=== PATIENT | female | born 1970 | race Two or more races ===

== ENCOUNTER 2017-09-24 11:41 | Day surgery (SDC) | payer BC ==
[2017-09-24] MEDS ORDERED: INSULIN REG, HUMAN 100 UNIT/ML 3 ML VIAL (PYX) ONE (12:25)
[2017-09-24] MEDS ORDERED: NALOXONE HCL INJ/PF 0.4 MG/1 ML SDV ONE (12:28)
[2017-09-24] MEDS ORDERED: DIPHENHYDRAMINE HCL 50 MG/ML VIAL ONE (12:28)
[2017-09-24] MEDS ORDERED: ONDANSETRON HCL INJ/PF 4 MG/2 ML SDV ONE (12:28)
[2017-09-24] MEDS ORDERED: FLUMAZENIL INJ 0.5 MG/5 ML VIAL ONE (12:29)
[2017-09-24] MEDS ORDERED: MIDAZOLAM 2 MG/2 ML INJ ONE (12:29)
[2017-09-24] MEDS ORDERED: EPINEPHRINE INJ 1 MG/10 ML DISP.SYRIN ONE (12:29)
[2017-09-24] MEDS ORDERED: FENTANYL CITRATE INJ/PF 100 MCG/2 ML AMPUL ONE (12:29)
[2017-09-24] MEDS ORDERED: GLUCAGON,HUMAN RECOMB 1 MG INJ ONE (12:30)
[2017-09-24] MEDS: MIDAZOLAM 2 MG/2 ML INJ ONE ×2 (13:12→13:18)
[2017-09-24 14:29] VITALS: BP 114/75
--- NOTE | 2017-09-24 14:40 | Operative Report ---
Operative Report DATE OF SURGERY: 09/24/17 Operative Report: The risks benefits and alternatives of the procedure explained to the patient in detail and informed consent is obtained.A GIF Olympus video scope was inserted into the patient's mouth and hypopharynx ,the esophagus is identified intubated and insufflated, the scope was then advanced through the esophagus stomach and duodenum, retroflexion maneuver is done, the esophagus stomach and first and second portions of the duodenum examined PREOPERATIVE DIAGNOSIS: Hematemesis, halitosis, GERD POSTOPERATIVE DIAGNOSIS: Distal esophageal ulcer. Gastritis status post biopsy rule out Helicobacter pylori OPERATION: EGD with biopsy SURGEON: ZEB CABRERA ANESTHESIA: Moderate Sedation - 4 mg of Versed, 100 mcg of fentanyl. Conscious sedation monitoring time 30 minutes. TISSUE REMOVED OR ALTERED: As noted above. COMPLICATIONS: None. ESTIMATED BLOOD LOSS: None. INTRAOPERATIVE FINDINGS: As noted above. PROCEDURE: Patient tolerated procedure well. No immediate postprocedure complications are noted. Patient discharged in good condition. Discharge date 09/24/2017. Discharge diet: Regular. Discharge activity: Regular. 2-3 week follow-up to discuss findings. Patient is instructed call the office or proceed to the emergency room should there be any further problems or questions. We will await pathology. I spoke to Dr. Matias about further hematologic workup.
== END 2017-09-24 14:30 | disposition home or self-care (01) ==
LOC: END 11:41
PROVIDERS: ATTEND Internal Medicine Gastroenterology
PROC: 0DB68ZX Excision of Stomach, Via Natural or Artificial Opening Endoscopic, Diagnostic (ICD-10-PCS; principal; 2017-09-24 12:30)
DX: K22.10 Ulcer of esophagus without bleeding (principal); K29.70 Gastritis, unspecified, without bleeding; K31.9 Disease of stomach and duodenum, unspecified; K21.9 Gastro-esophageal reflux disease without esophagitis; K92.0 Hematemesis; R19.6 Halitosis; E11.9 Type 2 diabetes mellitus without complications; I10 Essential (primary) hypertension; D64.9 Anemia, unspecified; Z79.82 Long term (current) use of aspirin; Z79.899 Other long term (current) drug therapy
CPT/HCPCS: 43239; 82962; 88342 ×2; 88305 ×2; J2250; J3010; J0171; J1200; J1610; J1815; J2310; J2405; J3490

== ENCOUNTER 2017-10-20 19:16 | Inpatient (IN) | payer BC ==
[2017-10-20] MEDS ORDERED: ONDANSETRON HCL INJ/PF 4 MG/2 ML SDV IV ONE (19:25)
[2017-10-20] MEDS ORDERED: NORMAL SALINE 1000 ML 1,000 ML IV ONE ×2 (19:25→22:14)
--- NOTE | 2017-10-20 19:38 | ER Document Report ---
ED General - General Stated Complaint: NAUSEA AND VOMITING Time Seen by Provider: 10/20/17 19:24 Notes: 47-year-old female type I diabetic presents with nausea vomiting abdominal pain for 2 days associated with decreased oral intake and high blood sugar. It has been normal at the house but when she was picked up at [facility] first her sugar read HI. She had shoulder surgery recently and before that had an endoscopy which showed "bleeding ulcer" but she denies bright red blood per rectum or black stool today. She has upper abdominal ache. TRAVEL OUTSIDE OF THE [place] IN LAST 30 DAYS: No - Related Data Allergies/Adverse Reactions: adhesive tape Allergy (Verified 09/24/17 12:37) cephalexin monohydrate [From Keflex] Allergy (Verified 09/24/17 12:37) ciprofloxacin Allergy (Verified 09/24/17 12:37) povidone-iodine [From Betadine] Allergy (Verified 09/24/17 12:37) Soap [From Betadine] Allergy (Verified 09/24/17 12:37) cillins Allergy (Uncoded 02/02/12 16:03) Past Medical History - Social History Smoking Status: Never Smoker Family History: Reviewed & Not Pertinent - Past Medical History Cardiac Medical History: Reports: Hx Hypercholesterolemia, Hx Hypertension - meds since 1998 Denies: Hx Coronary Artery Disease, Hx Heart Attack Pulmonary Medical History: Reports: Hx Pneumonia - no hospitalization Denies: Hx Asthma, Hx Bronchitis, Hx COPD Neurological Medical History: Denies: Hx Cerebrovascular Accident, Hx Seizures Endocrine Medical History: Reports: Hx Diabetes Mellitus Type 2 Musculoskeltal Medical History: Reports Hx Arthritis - knees and wrists, Reports Hx Musculoskeletal Trauma Past Surgical History: Reports: Hx Hysterectomy, Hx Orthopedic Surgery. Denies : Hx Pacemaker - Immunizations Immunizations up to date: Yes Hx Diphtheria, Pertussis, Tetanus Vaccination: Yes - 2007 Review of Systems - Review of Systems Notes: REVIEW OF SYSTEMS GEN: Denies fever, chills, weight loss ENT: Denies sore throat, nasal discharge, ear pain EYES: Denies blurry vision, eye pain, discharge CV: Denies chest pain, palpitations, edema RESP: Denies cough, shortness of breath, wheezing GI: Abdominal pain nausea and vomiting, constipation MSK: Denies joint pain/swelling, edema, SKIN: Denies rash, skin lesions LYMPH: Denies swollen glands/lymph nodes NEURO: Denies headache, focal weakness or numbness, dizziness PSYCH: Denies depression, suicidal or homicidal ideation PHYSICAL EXAMINATION General: No acute distress, well-nourished Head: Atraumatic, normocephalic ENT: Mouth normal, oropharynx dry, no exudates or tonsillar enlargement Eyes: Conjunctiva normal, pupils equal, lids normal Neck: No JVD, supple, no guarding CVS: Normal rate, regular rhythm, no murmurs Resp: No resp distress, equal and normal breath sounds bilaterally GI: Nondistended, soft, positive upper abdominal tenderness to palpation, no rebound or guarding Ext: No deformities, no edema, normal range of motion in upper and lower ext Back: No CVA or midline TTP Skin: No rash, warm Lymphatic: No lymphadeopathy noted Neuro: Awake, alert. Face symmetric. GCS 15. Physical Exam - Vital signs Vitals: Temp 98.6 F 10/20/17 19:34 Course - Re-evaluation Re-evalutation: 47-year-old female presents with upper abdominal pain nausea vomiting and high blood sugar. Signs and symptoms suggestive of diabetic ketoacidosis and dehydration. Differential includes gastritis but doubt active upper GI bleed. Will get EKG chest x-ray, blood sugar, hydrate empirically, await labs and plan for insulin drip if needed. 10/20/17 21:25 She is receiving fluids. Her labs were drawn twice because the lab stated that the labs were hemolyzed. I am still unable to treat her DKA, presumed anyway, because I do not know her chemistry test. 10/20/17 22:13 Insulin bolus and drip based on gap of 27 and elevated potassium. Will give second liter of fluid. EKG chest x-ray are negative. Discussed with Dr. Alfredo who will admit to IMCU - Vital Signs Vital signs: Temp Pulse Resp BP Pulse Ox 98.6 F 18 119/79 97 10/20/17 19:34 10/20/17 21:16 10/20/17 21:16 10/20/17 21:16 - Laboratory Result Diagrams: 10/20/17 19:45 10/20/17 20:40 Laboratory results interpreted by me: 10/20/17 10/20/17 20:40 20:56 Potassium 5.2 H Chloride 92 L Carbon Dioxide 18 L Anion Gap 27 H BUN 25 H Glucose 441 H* Urine Glucose (UA) >=500 H Urine Ketones 80 H - Diagnostic Test Radiology reviewed: Image reviewed, Reports reviewed - EKG Interpretation by Me EKG shows normal: Sinus rhythm Rate: Tachycardia Rhythm: NSR When compared to previous EKG there are: Previous EKG unavailable - No ST or T- wave changes Critical Care Note - Critical Care Note Total time excluding time spent on procedures (mins): 40 Comments: The above patient is critically ill. Not including procedures, but including direct re-evaluations, speaking with patient and/or consultants, interpreting results, and documenting, I spent the total amount of minute listed listed above on critical care time Discharge - Discharge Clinical Impression: Diabetic ketoacidosis Qualifiers: Diabetes mellitus type: type 1 Diabetes mellitus complication detail: without coma Qualified Code(s): E10.10 - Type 1 diabetes mellitus with ketoacidosis without coma Condition: Fair Disposition: ADMITTED INPATIENT Admitting Provider: Hospitalist Unit Admitted: IMCU Referrals: NILESH NARANJO MD [Primary Care Provider] - Follow up as needed
[2017-10-20 19:58] LABS: ABSOLUTE BASOPHILS # (AUTO) 0.1 10^3/uL (0.0-0.2); ABSOLUTE LYMPHOCYTES (AUTO) 2.1 10^3/uL (0.5-4.7); ABSOLUTE MONOCYTES (AUTO) 0.4 10^3/uL (0.1-1.4); ABSOLUTE NEUT (AUTO) 5.3 10^3/uL (1.7-8.2); EOSINOPHILS % (AUTO) 0.5 % (0-6); HEMOGLOBIN 13.6 g/dL (12.0-15.5); LYMPHOCYTES % (AUTO) 26.5 % (13-45); MEAN CORPUSCULAR HEMOGLOBIN 28.4 pg (27.0-33.4); MEAN CORPUSCULAR HGB CONC 33.1 g/dL (32.0-36.0); MEAN CORPUSCULAR VOLUME 86 fl (80-97); MONOCYTES % (AUTO) 5.5 % (3-13); PLATELET COUNT 395 10^3/uL (150-450); RED BLOOD COUNT 4.77 10^6/uL (3.72-5.28); RED CELL DISTRIBUTION WIDTH 12.4 % (11.5-14.0); SEGMENTED NEUTROPHILS % (AUTO) 66.5 % (42-78); TOTAL CELLS COUNTED % (AUTO) 100 %
--- NOTE | 2017-10-20 19:58 | RADIOLOGY REPORT (SQ) ---
EXAM DESCRIPTION: CHEST SINGLE VIEW portable COMPLETED DATE/TIME: 10/20/2017 7:44 pm REASON FOR STUDY: sob COMPARISON: None. EXAM PARAMETERS: NUMBER OF VIEWS: One view. TECHNIQUE: Single frontal radiographic view of the chest acquired. RADIATION DOSE: NA LIMITATIONS: Patient body habitus FINDINGS: LUNGS AND PLEURA: No opacities, masses or pneumothorax. No pleural effusion. MEDIASTINUM AND HILAR STRUCTURES: No masses. Contour normal. HEART AND VASCULAR STRUCTURES: Heart normal in size. Normal vasculature. BONES: No acute findings. HARDWARE: None in the chest. OTHER: No other significant finding. IMPRESSION: NO ACUTE RADIOGRAPHIC FINDING IN THE CHEST. TECHNICAL DOCUMENTATION: JOB ID: [id number] [employer]- All Rights Reserved
[2017-10-20 21:10] LABS: APPEARANCE,URINE CLEAR; BILIRUBIN,URINE NEGATIVE (NEGATIVE); COLOR,URINE YELLOW; GLUCOSE, URINE >=500 mg/dL (NEGATIVE); KETONES,URINE 80 mg/dL (NEGATIVE); LEUKOCYTE ESTERASE,URINE NEGATIVE (NEGATIVE); NITRITE,URINE NEGATIVE (NEGATIVE); PROTEIN,URINE NEGATIVE (NEGATIVE); URINE SPECIFIC GRAVITY 1.026; UROBILINOGEN,URINE NEGATIVE mg/dL (<2.0)
[2017-10-20 21:16] LABS: BLOOD UREA NITROGEN 25 mg/dL (7-20); CALCIUM 10.1 mg/dL (8.4-10.2); POTASSIUM 5.2 mmol/L (3.6-5.0)
[2017-10-20 21:29] LABS: CARBON DIOXIDE 18 mmol/L (22-30); CHLORIDE 92 mmol/L (98-107); SODIUM 137.2 mmol/L (137-145)
[2017-10-20 21:31] LABS: ANION GAP 27 (5-19)
[2017-10-20 21:34] LABS: GLUCOSE 441 mg/dL (75-110)
[2017-10-20] MEDS ORDERED: INSULIN REG, HUMAN 100 UNIT/ML 3 ML VIAL (PYX) IV ONE ×2 (21:51→21:53)
[2017-10-20] MEDS ORDERED: NORMAL SALINE 100 ML with INSULIN REGULAR, HUMAN 100 UNIT IV PRN ×4 (21:53→22:17)
[2017-10-20] MEDS ORDERED: DEXTROSE 40% GEL 15 GM TUBE PO PRN ×2 (22:17)
[2017-10-20] MEDS ORDERED: DEXTROSE 50%-WATER 25 GM/50 ML DISP.SYRIN IV PRN ×2 (22:17)
[2017-10-20] MEDS ORDERED: GLUCAGON,HUMAN RECOMB 1 MG INJ IM PRN (22:17)
[2017-10-20] MEDS ORDERED: IPRATROPIUM/ALBUTEROL 0.5-2.5 MG/3 ML AMPUL NEB PRN (22:17)
[2017-10-20] MEDS ORDERED: ONDANSETRON HCL INJ/PF 4 MG/2 ML SDV IV PRN (22:17)
[2017-10-20] MEDS ORDERED: NORMAL SALINE 1000 ML 1,000 ML IV SCH (22:30)
[2017-10-20 22:54] LABS: ALANINE AMINOTRANSFERASE 19 U/L (9-52); ALKALINE PHOSPHATASE 65 U/L (38-126); ASPARTATE AMINO TRANSFERASE 29 U/L (14-36); BILIRUBIN,DIRECT 0.5 mg/dL (0.0-0.4); BILIRUBIN,TOTAL 0.6 mg/dL (0.2-1.3); TOTAL PROTEIN 7.5 g/dL (6.3-8.2)
[2017-10-20] MEDS ORDERED: PANTOPRAZOLE SODIUM 40 MG VIAL IV ONE (23:00)
[2017-10-21 00:44] LABS: ANION GAP 19 (5-19); BLOOD UREA NITROGEN 22 mg/dL (7-20); CALCIUM 9.7 mg/dL (8.4-10.2); CARBON DIOXIDE 20 mmol/L (22-30); CHLORIDE 98 mmol/L (98-107); GLUCOSE 220 mg/dL (75-110); SODIUM 137.4 mmol/L (137-145)
[2017-10-21 00:53] LABS: POTASSIUM 3.9 mmol/L (3.6-5.0)
[2017-10-21] MEDS: POTASSI CL 20 MEQ/D5-1/2NS 1L 1000 ML IV PRN ×2 (02:31→09:02)
[2017-10-21] MEDS: HEPARIN SOD (PORCINE) 5,000 UNIT/ML 1 ML SYRINGE SUBCUT SCH ×3 (06:09→21:21)
[2017-10-21] MEDS: GABAPENTIN 300 MG CAPSULE PO SCH ×3 (06:09→21:21)
--- NOTE | 2017-10-21 06:26 | PDOC H&P ---
History of Present Illness Admission Date/PCP: 10/20/17 22:17 NILESH NARANJO MD History of Present Illness: SONIA CABAN is a 47 year old female with a history of diabetes, esophagitis with ulcer, fibromyalgia, tachycardia, obesity and obstructive sleep apnea. Patient has had several days of polyuria polydipsia and a week of uncontrolled blood sugars developing nausea and vomiting of gastric content and without blood. Unable to tolerate p.o. diet or medications she seeks evaluation emergency room where she is found to be in DKA with an anion gap of 27. She started on normal saline and insulin and referred to the hospitalist for admission. Patient denies previous episode. She denies recent change in medications. Past Medical History Cardiac Medical History: Reports: Hyperlipidema, Hypertension - meds since 1998 Denies: Coronary Artery Disease, Myocardial Infarction Pulmonary Medical History: Reports: Pneumonia - no hospitalization Denies: Asthma, Bronchitis, Chronic Obstructive Pulmonary Disease (COPD) Neurological Medical History: Denies: Seizures Endocrine Medical History: Reports: Diabetes Mellitus Type 2 Musculoskeltal Medical History: Reports: Arthritis - knees and wrists Psychiatric Medical History: Reports: Depression Hematology: Reports: Anemia - 1st Dx 2002 and states is currently anemic Past Surgical History Past Surgical History: Reports: Hysterectomy, Orthopedic Surgery Denies: Pacemaker Social History Information Source: Patient Lives with: Spouse/Significant other Smoking Status: Never Smoker - Advance Directive Resuscitation Status: Full Code Family History Family History: DM Parental Family History Reviewed: Yes Children Family History Reviewed: Yes Sibling(s) Family History Reviewed.: Yes Medication/Allergy Home Medications: Black Cohosh [Black Cohosh 40 mg Capsule] 40 mg PO DAILY 02/02/12 Cholecalciferol (Vitamin D3) [Vitamin D-3 Tablet 1000 Unit] 5,000 unit PO DAILY 02/02/12 Iron 65 mg PO BID 02/02/12 Omeprazole [Prilosec] 20 mg PO DAILY 02/02/12 Rosuvastatin Calcium [Crestor] 10 mg PO QPM 02/02/12 Zolmitriptan [Zomig] 5 mg PO PRN PRN 02/02/12 Chlorzoxazone [Parafon Forte Dsc 500 Mg Tablet] 500 mg PO TID #30 tablet Aspirin 81 mg PO DAILY 09/24/17 Dulaglutide [Trulicity] 0.75 mg SQ ASDIR PRN 09/24/17 Fenofibrate 145 mg PO DAILY 09/24/17 Gabapentin 600 mg PO ASDIR PRN 09/24/17 Insulin Degludec [Tresiba Flextouch U-100] 160 unit SQ BID 09/24/17 Linagliptin [Tradjenta] 5 mg PO DAILY 09/24/17 Lisinopril/Hydrochlorothiazide [Lisinopril-Hctz 10-12.5 mg Tab] 1 each PO DAILY 09/24/17 Magnesium 250 mg PO DAILY 09/24/17 Metformin HCl 1,000 mg PO BID 09/24/17 Oxycodone HCl/Acetaminophen [Percocet 5-325 mg Tablet] 1 tab PO DAILY 09/24/17 Potassium 250 mg PO DAILY 09/24/17 Vit,Calc78/Iron/Folic [Prenatabs Fa Tablet] 1 each PO DAILY 09/24/17 Sulindac 200 mg PO BID 09/24/17 Allergies/Adverse Reactions: adhesive tape Allergy (Verified 10/20/17 23:41) cephalexin monohydrate [From Keflex] Allergy (Verified 10/20/17 23:41) ciprofloxacin Allergy (Verified 10/20/17 23:41) povidone-iodine [From Betadine] Allergy (Verified 10/20/17 23:41) Soap [From Betadine] Allergy (Verified 10/20/17 23:41) cillins Allergy (Uncoded 02/02/12 16:03) Review of Systems Constitutional: PRESENT: as per HPI Eyes: ABSENT: visual disturbances Ears: ABSENT: hearing changes Cardiovascular: ABSENT: chest pain, dyspnea on exertion, edema, orthropnea, palpitations Gastrointestinal: PRESENT: bloating, constipation, nausea, vomiting Genitourinary: PRESENT: as per HPI Musculoskeletal: PRESENT: as per HPI Integumentary: ABSENT: rash, wounds Neurological: ABSENT: abnormal gait, abnormal speech, confusion, dizziness, focal weakness, syncope Psychiatric: ABSENT: anxiety, depression, homidical ideation, suicidal ideation Endocrine: PRESENT: polydipsia, polyphagia, polyuria Physical Exam Vital Signs: Temp Pulse Resp BP Pulse Ox 98.2 F 103 H 18 103/56 L 95 10/21/17 05:06 10/21/17 05:06 10/21/17 05:06 10/21/17 05:06 10/21/17 05:06 Intake & Output 10/19/17 10/20/17 10/21/17 11:59 11:59 11:59 Intake Total 1056 Balance 1056 Weight 80.7 kg General appearance: PRESENT: no acute distress, well-developed, well-nourished Head exam: PRESENT: atraumatic, normocephalic Eye exam: PRESENT: conjunctiva pink, EOMI, PERRLA. ABSENT: scleral icterus Ear exam: PRESENT: normal external ear exam Mouth exam: PRESENT: moist, tongue midline Neck exam: ABSENT: carotid bruit, JVD, lymphadenopathy, thyromegaly Respiratory exam: PRESENT: clear to auscultation lele. ABSENT: rales, rhonchi, wheezes Cardiovascular exam: PRESENT: RRR. ABSENT: diastolic murmur, rubs, systolic murmur Pulses: PRESENT: normal dorsalis pedis pul Vascular exam: PRESENT: normal capillary refill GI/Abdominal exam: PRESENT: normal bowel sounds, soft. ABSENT: distended, guarding, mass, organolmegaly, rebound, tenderness Rectal exam: PRESENT: deferred Extremities exam: PRESENT: full ROM. ABSENT: calf tenderness, clubbing, pedal edema Neurological exam: PRESENT: alert, awake, oriented to person, oriented to place , oriented to time, oriented to situation, CN II-XII grossly intact. ABSENT: motor sensory deficit Psychiatric exam: PRESENT: appropriate affect, normal mood. ABSENT: homicidal ideation, suicidal ideation Skin exam: PRESENT: dry, intact, warm. ABSENT: cyanosis, rash Results Laboratory Results: 10/20/17 23:59 10/20/17 23:59 Sodium 137.4 Potassium 3.9 D Chloride 98 Carbon Dioxide 20 L Anion Gap 19 BUN 22 H Creatinine 0.73 Est GFR ( Amer) > 60 Est GFR (Non-Af Amer) > 60 Glucose 220 H Calcium 9.7 Impressions: Chest X-Ray 10/20/17 19:24 IMPRESSION: NO ACUTE RADIOGRAPHIC FINDING IN THE CHEST. Assessment & Plan - Diagnosis (1) Diabetic ketoacidosis Qualifiers: Diabetes mellitus type: type 1 Diabetes mellitus complication detail: without coma Qualified Code(s): E10.10 - Type 1 diabetes mellitus with ketoacidosis without coma Is this a current diagnosis for this admission?: Yes Plan: Diabetic ketoacidosis patient has had some degree of polyuria polydipsia with nausea and uncontrolled hyperglycemia with supporting labs. Patient will receive IV fluids IV insulin serial chemistries every 6 hours for evaluation for electrolyte repletion. Continued evaluation for underlying cause if not found Patient will require diabetic education and consideration of mental health evaluation. (2) Ulcerative esophagitis Is this a current diagnosis for this admission?: Yes Plan: Proton pump inhibitor, follow-up CBC (3) Chronic pain Is this a current diagnosis for this admission?: Yes Plan: Symptomatic management and supportive care. (4) Constipation Is this a current diagnosis for this admission?: Yes Plan: Bowel regiment and lactulose. - Time Time Spent: 50 to 70 Minutes - Inpatient Certification Medical Necessity: Need Close Monitoring Due to Risk of Patient Decompensation
[2017-10-21 07:46] LABS: ABSOLUTE EOSINOPHILS # (AUTO) 0.1 10^3/uL (0.0-0.6); ABSOLUTE LYMPHOCYTES (AUTO) 3.3 10^3/uL (0.5-4.7); ABSOLUTE MONOCYTES (AUTO) 0.6 10^3/uL (0.1-1.4); ABSOLUTE NEUT (AUTO) 4.5 10^3/uL (1.7-8.2); BASOPHILS % (AUTO) 0.5 % (0-2); HEMATOCRIT 35.2 % (36.0-47.0); HEMOGLOBIN 11.8 g/dL (12.0-15.5); LYMPHOCYTES % (AUTO) 38.7 % (13-45); MEAN CORPUSCULAR HEMOGLOBIN 28.1 pg (27.0-33.4); MEAN CORPUSCULAR HGB CONC 33.5 g/dL (32.0-36.0); MEAN CORPUSCULAR VOLUME 84 fl (80-97); MONOCYTES % (AUTO) 6.7 % (3-13); PLATELET COUNT 387 10^3/uL (150-450); RED BLOOD COUNT 4.19 10^6/uL (3.72-5.28); RED CELL DISTRIBUTION WIDTH 12.4 % (11.5-14.0); SEGMENTED NEUTROPHILS % (AUTO) 53.1 % (42-78); TOTAL CELLS COUNTED % (AUTO) 100 %; WHITE BLOOD COUNT 8.5 10^3/uL (4.0-10.5)
[2017-10-21 08:16] LABS: ANION GAP 19 (5-19); BLOOD UREA NITROGEN 19 mg/dL (7-20); CALCIUM 9.8 mg/dL (8.4-10.2); CARBON DIOXIDE 24 mmol/L (22-30); CHLORIDE 99 mmol/L (98-107); GLUCOSE 110 mg/dL (75-110); POTASSIUM 3.6 mmol/L (3.6-5.0); SODIUM 141.6 mmol/L (137-145)
--- NOTE | 2017-10-21 10:34 | EKG REPORT ---
SEVERITY:- OTHERWISE NORMAL ECG - SINUS TACHYCARDIA : Confirmed by: Ruslan Zendejas 21-Oct-2017 10:33:24
[2017-10-21] MEDS ORDERED: INSULIN LISPRO 100 UNIT/ML 3 ML VIAL SUBCUT ONE (11:11)
[2017-10-21] MEDS: DOCUSATE SODIUM 100 MG CAPSULE PO SCH ×2 (11:32→17:17)
[2017-10-21] MEDS: ASPIRIN 81 MG TABLET, CHEWABLE PO SCH (11:32)
[2017-10-21] MEDS: DULOXETINE HCL 30 MG CAPSULE.DR PO SCH (11:33)
[2017-10-21] MEDS: PANTOPRAZOLE SODIUM 40 MG VIAL IV SCH ×2 (11:33→21:21)
[2017-10-21] MEDS ORDERED: DEXTROSE 40% GEL 15 GM TUBE PO PRN ×2 (12:53)
[2017-10-21] MEDS ORDERED: GLUCAGON,HUMAN RECOMB 1 MG INJ IM PRN (12:53)
[2017-10-21] MEDS ORDERED: DEXTROSE 50%-WATER 25 GM/50 ML DISP.SYRIN IV PRN ×2 (12:53)
--- NOTE | 2017-10-21 12:58 | PDOC PROGRESS REPORT ---
Subjective Progress Note for:: 10/21/17 Subjective:: Patient is seen on morning rounds. She is found resting in bed comfortably, she wakes easily upon my entering the room. She states that she is feeling much better, however, is fatigued from not sleeping well due to her late night admission. She denies fever, chills, chest pain, dyspnea, abdominal pain, nausea vomiting and diarrhea. She does tell me that she is hungry and requests to eat breakfast. She states that she normally takes Tresiba 160 units BID, but has been less compliant with her insulin because "I have been too busy with my surgeries." She states that she has plenty of the medication at home. She has no other questions or concerns today. Reason For Visit: DKA,GASTRITIS Physical Exam Vital Signs: Temp Pulse Resp BP Pulse Ox 98.8 F 90 14 108/66 99 10/21/17 07:41 10/21/17 08:00 10/21/17 08:00 10/21/17 07:41 10/21/17 08:00 Intake & Output 10/20/17 10/21/17 10/22/17 06:59 06:59 06:59 Intake Total 1056 Balance 1056 Weight 80.7 kg 80.7 kg General appearance: PRESENT: no acute distress, obese, well-developed, well- nourished Head exam: PRESENT: atraumatic, normocephalic Eye exam: PRESENT: conjunctiva pink, EOMI, PERRLA. ABSENT: scleral icterus Ear exam: PRESENT: normal external ear exam Mouth exam: PRESENT: moist, tongue midline Neck exam: ABSENT: carotid bruit, JVD, lymphadenopathy, thyromegaly Respiratory exam: PRESENT: clear to auscultation lele. ABSENT: rales, rhonchi, wheezes Cardiovascular exam: PRESENT: RRR. ABSENT: diastolic murmur, rubs, systolic murmur Pulses: PRESENT: normal dorsalis pedis pul Vascular exam: PRESENT: normal capillary refill GI/Abdominal exam: PRESENT: normal bowel sounds, soft. ABSENT: distended, guarding, mass, organolmegaly, rebound, tenderness Rectal exam: PRESENT: deferred Extremities exam: PRESENT: full ROM. ABSENT: calf tenderness, clubbing, pedal edema Neurological exam: PRESENT: alert, awake, oriented to person, oriented to place , oriented to time, oriented to situation, CN II-XII grossly intact. ABSENT: motor sensory deficit Psychiatric exam: PRESENT: appropriate affect, normal mood. ABSENT: homicidal ideation, suicidal ideation Skin exam: PRESENT: dry, intact, warm. ABSENT: cyanosis, rash Results Laboratory Results: 10/21/17 06:58 10/21/17 06:58 10/20/17 10/21/17 10/21/17 23:59 06:58 06:58 WBC 8.5 RBC 4.19 Hgb 11.8 L Hct 35.2 L MCV 84 MCH 28.1 MCHC 33.5 RDW 12.4 Plt Count 387 Seg Neutrophils % 53.1 Lymphocytes % 38.7 Monocytes % 6.7 Eosinophils % 1.0 Basophils % 0.5 Absolute Neutrophils 4.5 Absolute Lymphocytes 3.3 Absolute Monocytes 0.6 Absolute Eosinophils 0.1 Absolute Basophils 0.0 Sodium 137.4 141.6 Potassium 3.9 D 3.6 Chloride 98 99 Carbon Dioxide 20 L 24 Anion Gap 19 19 BUN 22 H 19 Creatinine 0.73 0.79 Est GFR ( Amer) > 60 > 60 Est GFR (Non-Af Amer) > 60 > 60 Glucose 220 H 110 Calcium 9.7 9.8 Impressions: Chest X-Ray 10/20/17 19:24 IMPRESSION: NO ACUTE RADIOGRAPHIC FINDING IN THE CHEST. Assessment & Plan - Diagnosis (1) Diabetic ketoacidosis Qualifiers: Diabetes mellitus type: type 1 Diabetes mellitus complication detail: without coma Qualified Code(s): E10.10 - Type 1 diabetes mellitus with ketoacidosis without coma Is this a current diagnosis for this admission?: Yes Plan: The patient was admitted with DKA and placed on IV fluids and insulin drip. The patient's anion gap has closed and her bicarb has normalized. Hemoglobin A1c 11.4% She will be transitioned to a consistent carb diet. I have concerns that her home insulin dosing may be reflective of noncompliance and not her true insulin needs. Therefore, she will be started on Levemir at 20 units twice daily. She will also receive Humalog for sliding scale coverage. Will ask the registered dietitian and nurses educator to meet with the patient. (2) Ulcerative esophagitis Is this a current diagnosis for this admission?: Yes Plan: Continue PPI (3) Constipation Is this a current diagnosis for this admission?: Yes Plan: Resolved following bowel regimen and lactulose. (4) Chronic pain Is this a current diagnosis for this admission?: Yes Plan: Symptomatic management and supportive care - Time Time Spent with patient: 15-24 minutes Anticipated discharge: Home Within: within 24 hours
[2017-10-21] MEDS ORDERED: INSULIN DETEMIR 100 UNIT/ML 3 ML PEN SUBCUT ONE (13:00)
[2017-10-21 13:45] LABS: ANION GAP 15 (5-19); BLOOD UREA NITROGEN 17 mg/dL (7-20); CALCIUM 9.4 mg/dL (8.4-10.2); CARBON DIOXIDE 23 mmol/L (22-30); CHLORIDE 100 mmol/L (98-107); GLUCOSE 169 mg/dL (75-110); POTASSIUM 3.8 mmol/L (3.6-5.0); SODIUM 137.6 mmol/L (137-145)
[2017-10-21 15:05] LABS: ANION GAP 18 (5-19); BLOOD UREA NITROGEN 17 mg/dL (7-20); CALCIUM 9.7 mg/dL (8.4-10.2); CARBON DIOXIDE 21 mmol/L (22-30); CHLORIDE 99 mmol/L (98-107); GLUCOSE 292 mg/dL (75-110); POTASSIUM 4.1 mmol/L (3.6-5.0)
[2017-10-21] MEDS: INSULIN LISPRO 100 UNIT/ML 3 ML VIAL SUBCUT PRN ×3 (15:18→21:20)
[2017-10-21] MEDS ORDERED: INSULIN DEGLUDEC 160 UNIT SQ SCH (18:00)
[2017-10-21] MEDS: NORMAL SALINE 1000 ML 1,000 ML IV PRN (21:38)
[2017-10-21] MEDS ORDERED: INSULIN DETEMIR 100 UNIT/ML 3 ML PEN SUBCUT SCH (22:00)
[2017-10-21 22:23] LABS: ANION GAP 14 (5-19); BLOOD UREA NITROGEN 17 mg/dL (7-20); CALCIUM 9.1 mg/dL (8.4-10.2); CARBON DIOXIDE 24 mmol/L (22-30); CHLORIDE 99 mmol/L (98-107); GLUCOSE 267 mg/dL (75-110); POTASSIUM 4.2 mmol/L (3.6-5.0)
[2017-10-22 04:52] LABS: HEMATOCRIT 32.9 % (36.0-47.0); HEMOGLOBIN 11.1 g/dL (12.0-15.5); MEAN CORPUSCULAR HEMOGLOBIN 29.1 pg (27.0-33.4); MEAN CORPUSCULAR HGB CONC 33.8 g/dL (32.0-36.0); MEAN CORPUSCULAR VOLUME 86 fl (80-97); PLATELET COUNT 292 10^3/uL (150-450); RED BLOOD COUNT 3.82 10^6/uL (3.72-5.28); RED CELL DISTRIBUTION WIDTH 12.3 % (11.5-14.0)
[2017-10-22] MEDS: GABAPENTIN 300 MG CAPSULE PO SCH (06:18)
[2017-10-22] MEDS: HEPARIN SOD (PORCINE) 5,000 UNIT/ML 1 ML SYRINGE SUBCUT SCH (06:18)
[2017-10-22] MEDS: NORMAL SALINE 1000 ML 1,000 ML IV PRN (06:18)
[2017-10-22] MEDS ORDERED: DEXTROSE 40% GEL 15 GM TUBE PO PRN (08:28)
[2017-10-22] MEDS ORDERED: GLUCAGON,HUMAN RECOMB 1 MG INJ IM PRN (08:28)
[2017-10-22] MEDS ORDERED: DEXTROSE 50%-WATER SYRINGE 12.5 GM/25 ML DOSE IV PRN (08:28)
[2017-10-22] MEDS ORDERED: DEXTROSE 40% GEL 15 GM TUBE X 2 PO PRN (08:28)
[2017-10-22] MEDS ORDERED: DEXTROSE 50%-WATER SYRINGE 25 GM/50 ML DOSE IV PRN (08:28)
[2017-10-22] MEDS: INSULIN LISPRO 100 UNIT/ML 3 ML VIAL SUBCUT PRN (08:58)
[2017-10-22] MEDS: PANTOPRAZOLE SODIUM 40 MG VIAL IV SCH (09:01)
[2017-10-22] MEDS: DOCUSATE SODIUM 100 MG CAPSULE PO SCH (09:01)
[2017-10-22] MEDS: DULOXETINE HCL 30 MG CAPSULE.DR PO SCH (09:01)
[2017-10-22] MEDS: ASPIRIN 81 MG TABLET, CHEWABLE PO SCH (09:01)
[2017-10-22] MEDS ORDERED: INSULIN DETEMIR 100 UNIT/ML 3 ML PEN SUBCUT SCH (10:00)
[2017-10-22 11:05] VITALS: BP 103/56
--- NOTE | 2017-10-22 12:12 | PDOC DISCHARGE SUMMARY ---
General - Admit/Disc Date/PCP Admission Date/Primary Care Provider: 10/20/17 22:17 NILESH NARANJO MD Discharge Date: 10/22/17 - Discharge Diagnosis (1) Diabetic ketoacidosis Is this a current diagnosis for this admission?: Yes (2) Ulcerative esophagitis Is this a current diagnosis for this admission?: Yes (3) Constipation Is this a current diagnosis for this admission?: Yes (4) Chronic pain Is this a current diagnosis for this admission?: Yes - Additional Information Resuscitation Status: Full Code Discharge Diet: Diabetic, Other (Comments) Discharge Activity: Activity As Tolerated, Slowly Increase Activity Prescriptions: Insulin Aspart [Novolog Flexpen] 0 unit SUBCUT .SLD SCALE #4 pen Insulin Detemir [Levemir Insulin 100 units/mL] 22 unit SUBCUT Q12 #5 insuln.pen Home Medications: Aspirin [Aspirin EC] 81 mg PO DAILY 10/21/17 Cholecalciferol (Vitamin D3) [Vitamin D3 5000 unit Capsule] 5,000 units PO DAILY 10/21/17 Dulaglutide [Trulicity] 0.75 mg SQ .WEEKLY ON Thursday10/21/17 Duloxetine HCl [Cymbalta] 30 mg PO DAILY 10/21/17 Fenofibrate Nanocrystallized [Tricor 145 mg Tablet] 145 mg PO DAILY 10/21/17 Gabapentin [Gralise] 600 mg PO 5XD 10/21/17 Iron 65 mg PO DAILY 10/21/17 Lisinopril/Hydrochlorothiazide [Lisinopril-Hctz 10-12.5 mg Tab] 1 tab PO DAILY 10/21/17 Magnesium 500 mg PO DAILY 10/21/17 Omeprazole Magnesium [Prilosec Otc] 20 mg PO DAILY 10/21/17 Oxycodone HCl/Acetaminophen [Percocet 5-325 mg Tablet] 1 tab PO DAILY 10/21/17 Vit/Iron Fum/Folic AC [ Tablet] 1 tab PO DAILY 10/21/17 Rosuvastatin Calcium [Crestor 10 mg Tablet] 10 mg PO QHS 10/21/17 Gabapentin [Neurontin 300 mg Capsule] 600 mg PO Q8 capsule 10/22/17 Insulin Aspart [Novolog Flexpen] 0 unit SUBCUT .SLD SCALE #4 pen 10/22/17 Insulin Detemir [Levemir Insulin 100 units/mL] 22 unit SUBCUT Q12 #5 insuln.pen 10/22/17 History of Present Illness History of Present Illness: Per H&P by Dr. Alfredo: SONIA CABAN is a 47 year old female with a history of diabetes, esophagitis with ulcer, fibromyalgia, tachycardia, obesity and obstructive sleep apnea. Patient has had several days of polyuria polydipsia and a week of uncontrolled blood sugars developing nausea and vomiting of gastric contact and without blood. Unable to tolerate p.o. diet or medication she seeks evaluation emergency room where she is found to be in DKA with an anion gap of 27. She started on normal saline and insulin and referred to the hospitalist for admission. Patient denies previous episodes. She denies recent change in medications. Hospital Course Hospital Course: The patient was admitted with DKA. The patient reports that she has had trouble managing her blood sugars for approximately 1 month after her admission at another facility for her GI bleed. She states that she has made many dietary changes since that time and has had trouble regulating blood sugar and insulin. She developed nausea and vomiting approximately a week ago worsening until she no longer could tolerate p.o. fluids. She was placed on IV fluids and an insulin drip. Her anion gap closed overnight with quick resolution of elevated bicarb. The patient was placed on a consistent carb diet and transitioned to subcutaneous Levemir twice daily with Humalog sliding scale insulin. At time of discharge, the patient is in stable condition, tolerating a consistent carb diet, with adequate glucose control. She is provided prescriptions for both Levemir and Humalog. She is instructed on how to provide both medications and educated on use of the sliding scale. The patient is able to teach this back to me. She reports to me that she has a glucometer with adequate number of pen needles, lancets, and test strips. She is discharged home with self-care and instructed to follow-up with her primary care provider within 1 week. Physical Exam Vital Signs: Temp Pulse Resp BP Pulse Ox 97.9 F 94 14 103/56 L 97 10/22/17 11:02 10/22/17 11:02 10/22/17 11:02 10/22/17 11:02 10/22/17 11:02 Intake & Output 10/21/17 10/22/17 10/23/17 06:59 06:59 06:59 Intake Total 1056 2800 Output Total 500 Balance 1056 2300 Weight 80.7 kg 85 kg General appearance: PRESENT: no acute distress, well-developed, well-nourished, other - Overweight Head exam: PRESENT: atraumatic, normocephalic Eye exam: PRESENT: conjunctiva pink, EOMI, PERRLA. ABSENT: scleral icterus Ear exam: PRESENT: normal external ear exam Mouth exam: PRESENT: moist, tongue midline Neck exam: ABSENT: carotid bruit, JVD, lymphadenopathy, thyromegaly Respiratory exam: PRESENT: clear to auscultation lele, symmetrical, unlabored. ABSENT: rales, rhonchi, wheezes Cardiovascular exam: PRESENT: RRR, +S1, +S2. ABSENT: diastolic murmur, rubs, systolic murmur Pulses: PRESENT: normal dorsalis pedis pul Vascular exam: PRESENT: normal capillary refill GI/Abdominal exam: PRESENT: normal bowel sounds, soft. ABSENT: distended, guarding, mass, organolmegaly, rebound, tenderness Rectal exam: PRESENT: deferred Extremities exam: PRESENT: full ROM, pedal edema - trace pedal edema. ABSENT: calf tenderness, clubbing Neurological exam: PRESENT: alert, awake, oriented to person, oriented to place , oriented to time, oriented to situation, CN II-XII grossly intact. ABSENT: motor sensory deficit Psychiatric exam: PRESENT: appropriate affect, normal mood. ABSENT: homicidal ideation, suicidal ideation Skin exam: PRESENT: dry, intact, warm. ABSENT: cyanosis, rash Results Laboratory Results: 10/22/17 04:20 10/21/17 21:50 10/21/17 10/21/17 10/21/17 12:50 14:20 21:50 WBC RBC Hgb Hct MCV MCH MCHC RDW Plt Count Sodium 137.6 138.0 137.0 Potassium 3.8 4.1 4.2 Chloride 100 99 99 Carbon Dioxide 23 21 L 24 Anion Gap 15 18 14 BUN 17 17 17 Creatinine 0.74 0.79 0.88 Est GFR ( Amer) > 60 > 60 > 60 Est GFR (Non-Af Amer) > 60 > 60 > 60 Glucose 169 H 292 H 267 H Calcium 9.4 9.7 9.1 10/22/17 04:20 WBC 6.0 RBC 3.82 Hgb 11.1 L Hct 32.9 L MCV 86 MCH 29.1 MCHC 33.8 RDW 12.3 Plt Count 292 Sodium Potassium Chloride Carbon Dioxide Anion Gap BUN Creatinine Est GFR ( Amer) Est GFR (Non-Af Amer) Glucose Calcium Impressions: Chest X-Ray 10/20/17 19:24 IMPRESSION: NO ACUTE RADIOGRAPHIC FINDING IN THE CHEST. Qualifiers PATEINT BEING DISCHARGED WITH ANY OF THE FOLLOWING DIAGNOSIS?: No Plan Discharge Plan: Discharge to home with self care. Follow up with primary care within one week.
== END 2017-10-22 13:50 | disposition home or self-care (01) | DRG 638 ==
LOC: ER 19:16 → EH 22:17 → 3N 10-21 00:18
PROVIDERS: ADMIT Internal Medicine; ATTEND Internal Medicine
PROC: 5A09457 Assistance with Respiratory Ventilation, 24-96 Consecutive Hours, Continuous Positive Airway Pressure (ICD-10-PCS; principal; 2017-10-21)
PROC: 3E0234Z Introduction of Serum, Toxoid and Vaccine into Muscle, Percutaneous Approach (ICD-10-PCS; 2017-10-21)
DX: E10.10 Type 1 diabetes mellitus with ketoacidosis without coma (principal); K22.10 Ulcer of esophagus without bleeding; K59.00 Constipation, unspecified; G89.29 Other chronic pain; G47.33 Obstructive sleep apnea (adult) (pediatric); M79.7 Fibromyalgia; E66.9 Obesity, unspecified; Z68.33 Body mass index [BMI] 33.0-33.9, adult; I10 Essential (primary) hypertension; M19.032 Primary osteoarthritis, left wrist; M19.031 Primary osteoarthritis, right wrist; M17.0 Bilateral primary osteoarthritis of knee; F32.9 Major depressive disorder, single episode, unspecified; E78.00 Pure hypercholesterolemia, unspecified; Z79.4 Long term (current) use of insulin; Z79.899 Other long term (current) drug therapy; Z90.710 Acquired absence of both cervix and uterus; Z83.3 Family history of diabetes mellitus; Z79.82 Long term (current) use of aspirin; Z88.1 Allergy status to other antibiotic agents; Z88.3 Allergy status to other anti-infective agents
CPT/HCPCS: 36415; 71045; 80048; 80076; 81001; 82962; 83036; 85025; 85027; 93005; 93010; 94660; 96361; 96374; 99291; J1644; J1815; J2405; J3480; J7030; S0164

== ENCOUNTER 2017-11-09 08:30 | Day surgery (SDC) | payer BC ==
[~2017-11-09 08:30] MED LIST: PROPOFOL INJ 200 MG/20 ML VIAL IV ONE
[2017-11-09 10:28] VITALS: BP 136/91
--- NOTE | 2017-11-09 12:37 | Operative Report ---
Operative Report DATE OF SURGERY: 11/09/17 Operative Report: The risks benefits and alternatives of the procedure explained to the patient in detail and informed consent is obtained.A GIF Olympus video scope was inserted into the patient's mouth and hypopharynx, the esophagus is identified intubated and insufflated, the scope was then advanced through the esophagus stomach and duodenum, retroflexion maneuver is done, the esophagus stomach and first and second portions of the duodenum examined PREOPERATIVE DIAGNOSIS: Follow-up esophageal ulceration POSTOPERATIVE DIAGNOSIS: Healed esophagus. Gastritis status post biopsy. Patient had been n.p.o. postmidnight, she has diabetes, she appears to have gastroparesis with the remainder of food eaten from last night still present in the stomach. OPERATION: EGD with biopsy SURGEON: ZEB CABRERA ANESTHESIA: LMAC TISSUE REMOVED OR ALTERED: As noted above. COMPLICATIONS: None. ESTIMATED BLOOD LOSS: None. INTRAOPERATIVE FINDINGS: As noted above. PROCEDURE: Patient tolerated the procedure well. No immediate postprocedure complications are noted. Patient discharged in good condition. Discharge date 11/09/2017. Discharge diet: Regular. Discharge activity: Regular. 2-3 week follow-up to discuss findings. She may need Botox injections in the future. We will wait on pathology. Patient is instructed to call the office or proceed to the emergency room should there be any further problems or questions.
== END 2017-11-09 10:28 | disposition home or self-care (01) ==
LOC: END 08:30
PROVIDERS: ATTEND Internal Medicine Gastroenterology
PROC: 0DB68ZX Excision of Stomach, Via Natural or Artificial Opening Endoscopic, Diagnostic (ICD-10-PCS; principal; 2017-11-09 09:30)
DX: K22.10 Ulcer of esophagus without bleeding (principal); K31.9 Disease of stomach and duodenum, unspecified; I10 Essential (primary) hypertension; E11.10 Type 2 diabetes mellitus with ketoacidosis without coma; Z09 Encounter for follow-up examination after completed treatment for conditions other than malignant neoplasm; Z87.11 Personal history of peptic ulcer disease
CPT/HCPCS: 43239; 82962; 88342 ×2; 88305 ×2; J2704; 731

== ENCOUNTER 2017-12-15 17:25 | Emergency (ER) | payer BC ==
--- NOTE | 2017-12-15 18:32 | ER Document Report ---
ED Medical Screen (RME) - General Chief Complaint: Fast heart rate Stated Complaint: HEART RATE ISSUE Time Seen by Provider: 12/15/17 18:29 Mode of Arrival: Ambulatory Information source: Patient Notes: 47-year-old female history of sinus tachycardia who had a Holter monitor at one point for syncopal episodes presents with complaints of heart racing since today. Patient denies any fevers or chills denies any nausea vomiting patient was recently here for DKA requiring IV fluids I have greeted and performed a rapid initial assessment of this patient. A comprehensive ED assessment and evaluation of the patient, analysis of test results and completion of the medical decision making process will be conducted by additional ED providers. PHYSICAL EXAMINATION: GENERAL: Well-appearing, well-nourished and in no acute distress. HEAD: Atraumatic, normocephalic. EYES: Pupils equal round extraocular movements intact, conjunctiva are normal. ENT: Nares patent NECK: Normal range of motion LUNGS: No respiratory distress Heart: Sinus tachycardia Musculoskeletal: Normal range of motion NEUROLOGICAL: Normal speech, normal gait. PSYCH: Normal mood, normal affect. SKIN: Warm, Dry, normal turgor, no rashes or lesions noted. TRAVEL OUTSIDE OF THE [place] IN LAST 30 DAYS: No - Related Data Allergies/Adverse Reactions: adhesive tape Allergy (Verified 11/09/17 08:32) cephalexin monohydrate [From Keflex] Allergy (Verified 11/09/17 08:32) ciprofloxacin Allergy (Verified 11/09/17 08:32) povidone-iodine [From Betadine] Allergy (Verified 11/09/17 08:32) Soap [From Betadine] Allergy (Verified 11/09/17 08:32) cillins Allergy (Uncoded 02/02/12 16:03) Past Medical History - Social History Chew tobacco use (# tins/day): No Frequency of alcohol use: None Drug Abuse: None - Past Medical History Cardiac Medical History: Reports: Hx Hypercholesterolemia, Hx Hypertension - meds since 1998 Denies: Hx Coronary Artery Disease, Hx Heart Attack Pulmonary Medical History: Reports: Hx Pneumonia - no hospitalization Denies: Hx Asthma, Hx Bronchitis, Hx COPD Neurological Medical History: Denies: Hx Cerebrovascular Accident, Hx Seizures Endocrine Medical History: Reports: Hx Diabetes Mellitus Type 2 Renal/ Medical History: Denies: Hx Peritoneal Dialysis Musculoskeltal Medical History: Reports Hx Arthritis - knees and wrists, Reports Hx Musculoskeletal Trauma Psychiatric Medical History: Reports: Hx Depression Past Surgical History: Reports: Hx Hysterectomy, Hx Orthopedic Surgery. Denies : Hx Pacemaker - Immunizations Immunizations up to date: Yes Hx Diphtheria, Pertussis, Tetanus Vaccination: Yes - 2007 History of Influenza Vaccine for 07/2017 - 12/2017 Season: Refused Physical Exam - Vital signs Vitals: Temp Pulse Resp BP Pulse Ox 98.7 F 123 H 19 111/65 98 12/15/17 17:38 12/15/17 17:38 12/15/17 17:38 12/15/17 17:38 12/15/17 17:38 Course - Vital Signs Vital signs: Temp Pulse Resp BP Pulse Ox 98.7 F 123 H 19 111/65 98 12/15/17 17:38 12/15/17 17:38 12/15/17 17:38 12/15/17 17:38 12/15/17 17:38
[2017-12-15] MEDS ORDERED: NORMAL SALINE 1000 ML 1,000 ML IV ONE (18:33)
[2017-12-15 19:49] LABS: ABSOLUTE BASOPHILS # (AUTO) 0.1 10^3/uL (0.0-0.2); ABSOLUTE EOSINOPHILS # (AUTO) 0.1 10^3/uL (0.0-0.6); ABSOLUTE LYMPHOCYTES (AUTO) 0.9 10^3/uL (0.5-4.7); ABSOLUTE MONOCYTES (AUTO) 0.5 10^3/uL (0.1-1.4); ABSOLUTE NEUT (AUTO) 4.2 10^3/uL (1.7-8.2); EOSINOPHILS % (AUTO) 1.3 % (0-6); HEMOGLOBIN 12.8 g/dL (12.0-15.5); LYMPHOCYTES % (AUTO) 15.4 % (13-45); MEAN CORPUSCULAR HEMOGLOBIN 28.7 pg (27.0-33.4); MEAN CORPUSCULAR HGB CONC 33.7 g/dL (32.0-36.0); MEAN CORPUSCULAR VOLUME 85 fl (80-97); MONOCYTES % (AUTO) 8.4 % (3-13); PLATELET COUNT 330 10^3/uL (150-450); RED BLOOD COUNT 4.47 10^6/uL (3.72-5.28); SEGMENTED NEUTROPHILS % (AUTO) 73.9 % (42-78); TOTAL CELLS COUNTED % (AUTO) 100 %; WHITE BLOOD COUNT 5.7 10^3/uL (4.0-10.5)
[2017-12-15 20:10] LABS: ALANINE AMINOTRANSFERASE 51 U/L (9-52); ALBUMIN 4.8 g/dL (3.5-5.0); ALKALINE PHOSPHATASE 85 U/L (38-126); ANION GAP 15 (5-19); ASPARTATE AMINO TRANSFERASE 78 U/L (14-36); BILIRUBIN,DIRECT 0.4 mg/dL (0.0-0.4); BILIRUBIN,TOTAL 0.4 mg/dL (0.2-1.3); BLOOD UREA NITROGEN 26 mg/dL (7-20); CALCIUM 10.4 mg/dL (8.4-10.2); CARBON DIOXIDE 23 mmol/L (22-30); CHLORIDE 97 mmol/L (98-107); GLUCOSE 379 mg/dL (75-110); POTASSIUM 4.7 mmol/L (3.6-5.0); SODIUM 134.6 mmol/L (137-145); TOTAL PROTEIN 7.6 g/dL (6.3-8.2)
--- NOTE | 2017-12-15 20:46 | EKG REPORT ---
SEVERITY:- ABNORMAL ECG - SINUS TACHYCARDIA NONSPECIFIC T ABNORMALITIES, DIFFUSE LEADS : Confirmed by: John Sainz MD 15-Dec-2017 20:46:01
--- NOTE | 2017-12-15 21:50 | ER Document Report ---
ED General - General Chief Complaint: Fast heart rate Stated Complaint: HEART RATE ISSUE Time Seen by Provider: 12/15/17 18:29 Mode of Arrival: Ambulatory Notes: Patient is a 47 year old with a past medical history of chronic tachycardia, depression, diabetes, and hypertension who presents with palpitations and shortness of breath. Patient states that earlier today while out to dinner with her she spontaneously developed palpitations with associated " chest pounding" and a sensation of shortness of breath. She states that the symptoms came on suddenly and nothing seemed to improve or worsen them when present. She denies a history of similar symptoms in the past although has been on a monitor and notes a history of chronic tachycardia that is not currently being treated with any AV maverick blockers. She does also note that she has been under increased stress recently due to this being the anniversary of her mother's birthday whom recently. At time of my assessment patient notes that her symptoms have improved significantly after receiving IV fluids here in the emergency department. She denies any ongoing chest discomfort, shortness of breath, weakness, numbness, headache and denies any history of syncope. She has no history of DVT or pulmonary embolus and no known history of coronary artery disease. She does not use supplemental estrogen. TRAVEL OUTSIDE OF THE [place] IN LAST 30 DAYS: No - Related Data Allergies/Adverse Reactions: adhesive tape Allergy (Verified 11/09/17 08:32) cephalexin monohydrate [From Keflex] Allergy (Verified 11/09/17 08:32) ciprofloxacin Allergy (Verified 11/09/17 08:32) povidone-iodine [From Betadine] Allergy (Verified 11/09/17 08:32) Soap [From Betadine] Allergy (Verified 11/09/17 08:32) cillins Allergy (Uncoded 02/02/12 16:03) Past Medical History - General Information source: Patient - Social History Smoking Status: Never Smoker Chew tobacco use (# tins/day): No Frequency of alcohol use: None Drug Abuse: None Lives with: Spouse/Significant other Family History: DM Patient has suicidal ideation: No Patient has homicidal ideation: No - Past Medical History Cardiac Medical History: Reports: Hx Hypercholesterolemia, Hx Hypertension - meds since 1998 Denies: Hx Coronary Artery Disease, Hx Heart Attack Pulmonary Medical History: Reports: Hx Pneumonia - no hospitalization Denies: Hx Asthma, Hx Bronchitis, Hx COPD Neurological Medical History: Denies: Hx Cerebrovascular Accident, Hx Seizures Endocrine Medical History: Reports: Hx Diabetes Mellitus Type 2 Renal/ Medical History: Denies: Hx Peritoneal Dialysis Musculoskeltal Medical History: Reports Hx Arthritis - knees and wrists, Reports Hx Musculoskeletal Trauma Psychiatric Medical History: Reports: Hx Depression Past Surgical History: Reports: Hx Section, Hx Hysterectomy, Hx Orthopedic Surgery. Denies: Hx Pacemaker - Immunizations Immunizations up to date: Yes Hx Diphtheria, Pertussis, Tetanus Vaccination: Yes - 2007 Review of Systems - Review of Systems Notes: Constitutional: Negative for fever. HENT: Negative for sore throat. Eyes: Negative for visual changes. Cardiovascular: Positive for palpitations Respiratory: Positive for shortness of breath. Gastrointestinal: Negative for abdominal pain, vomiting or diarrhea. Genitourinary: Negative for dysuria. Musculoskeletal: Negative for back pain. Skin: Negative for rash. Neurological: Negative for headaches, weakness or numbness. 10 point ROS negative except as marked above and in HPI. Physical Exam - Vital signs Vitals: Temp Pulse Resp BP Pulse Ox 98.7 F 123 H 19 111/65 98 12/15/17 17:38 12/15/17 17:38 12/15/17 17:38 12/15/17 17:38 12/15/17 17:38 Interpretation: Tachycardic Notes: PHYSICAL EXAMINATION: GENERAL: Well-appearing, well-nourished and in no acute distress. HEAD: Atraumatic, normocephalic. EYES: Pupils equal round and reactive to light, extraocular movements intact, sclera anicteric, conjunctiva are normal. ENT: nares patent, oropharynx clear without exudates. Moist mucous membranes. NECK: Normal range of motion, supple without lymphadenopathy LUNGS: Breath sounds clear to auscultation bilaterally and equal. No wheezes rales or rhonchi. HEART: Regular tachycardia without murmurs ABDOMEN: Soft, nontender, normoactive bowel sounds. No guarding, no rebound. No masses appreciated. EXTREMITIES: Normal range of motion, no pitting or edema. No cyanosis. NEUROLOGICAL: No focal neurological deficits. Moves all extremities spontaneously and on command. PSYCH: Normal mood, normal affect. SKIN: Warm, Dry, normal turgor, no rashes or lesions noted. Course - Re-evaluation Re-evalutation: 12/15/17 21:47 Patient presents with palpitations but is in no acute distress. Patient was quite tachycardic at time of presentation but apparently has been being monitored with a loop monitor device and is found at baseline to be tachycardic between 105 and 125 at baseline. EKG unremarkable with a sinus tachycardia. Laboratories are unremarkable. D-dimer is negative. This was obtained due to patient's tachycardia as well as a complaint of shortness of breath or palpitations. Given his negative d-dimer as well as complete resolution of patient's symptoms after resolution of her tachycardia, I do not believe a CTA would be appropriate this point. Labs are otherwise unremarkable with exception of mild hyperglycemia. At this time based on exam and history do not suspect a new onset arrhythmia, ACS, acute pulmonary embolus, aortic dissection. Patient encouraged to follow-up with their primary care physician as well as cardiology and a referral has been provided. At this time will discharge with return precautions and follow-up recommendations. Verbal discharge instructions given a the bedside and opportunity for questions given. Medication warnings reviewed. Patient is in agreement with this plan and has verbalized understanding of return precautions and the need for primary care follow-up in the next 24-72 hours. - Vital Signs Vital signs: Temp Pulse Resp BP Pulse Ox 98.7 F 123 H 15 116/73 97 12/15/17 17:38 12/15/17 17:38 12/15/17 22:01 12/15/17 22:01 12/15/17 22:01 - Laboratory Result Diagrams: 12/15/17 19:40 12/15/17 19:40 Laboratory results interpreted by me: 12/15/17 12/15/17 18:48 19:40 Sodium 134.6 L Chloride 97 L BUN 26 H Glucose 379 H POC Glucose 338 H Calcium 10.4 H AST 78 H - EKG Interpretation by Me Additional EKG results interpreted by me: 12/15/17 21:48 Sinus tachycardia. Rate 122. No ST elevations or depressions. QTC is 433. Discharge - Discharge Clinical Impression: Palpitations, Tachycardia, Shortness of breath Condition: Good Disposition: HOME, SELF-CARE Additional Instructions: Please follow-up with your flange machine operator regarding your palpitations. Return if you develop chest pain, shortness of breath, pass out, or have any other symptoms that are worrisome to you. Referrals: NILESH NARANJO MD [Primary Care Provider] - Follow up as needed
[2017-12-15 22:12] VITALS: BP 116/73
== END 2017-12-15 22:15 | disposition home or self-care (01) ==
LOC: ER 17:25
DX: R00.2 Palpitations (principal); R06.02 Shortness of breath; R00.0 Tachycardia, unspecified; E11.65 Type 2 diabetes mellitus with hyperglycemia; I10 Essential (primary) hypertension; Z91.048 Other nonmedicinal substance allergy status; Z88.1 Allergy status to other antibiotic agents; Z88.3 Allergy status to other anti-infective agents; Z88.0 Allergy status to penicillin
CPT/HCPCS: 36415; 80053; 82962; 84443; 85025; 85379; 93005; 93010; 99285

== ENCOUNTER 2018-02-13 20:26 | Emergency (ER) | payer BC ==
--- NOTE | 2018-02-13 22:36 | ER Document Report ---
HPI - HPI Patient complains to provider of: Fall Onset: This afternoon Onset/Duration: Sudden Quality of pain: Achy Pain Level: 4 Context: Patient states she was walking and stepped off of a curb rolling her right ankle. Patient states that she then fell towards her left side and attempted to catch herself by bracing her right arm on the ground. Patient states that she has had recent surgery to this shoulder in August of last year and that she misty her right shoulder. Patient also reports hitting the upper back, neck and head on a cement planter. Patient denies any loss of consciousness but does report nausea. Patient denies any vomiting. Patient complains of continued neck and severe headache pain. Associated Symptoms: Headache, Nausea, Other - Neck, upper back, right shoulder , knee, right ankle pain. denies: Fever, Vomiting Exacerbated by: Movement, Walking Relieved by: Denies Similar symptoms previously: No Recently seen / treated by doctor: No - ROS ROS below otherwise negative: Yes Systems Reviewed and Negative: Yes All other systems reviewed and negative - CONSTITUTIONAL Constitutional: DENIES: Fever - NEURO Neurology: REPORTS: Headache, Dizzinesss / Vertigo. DENIES: Weakness - RESPIRATORY Respiratory: DENIES: Trouble Breathing, Coughing - GASTROINTESTINAL Gastrointestinal: REPORTS: Nausea. DENIES: Patient vomiting - REPRODUCTIVE Reproductive: DENIES: : - MUSCULOSKELETAL Musculoskeletal: REPORTS: Extremity pain, Back Pain, Neck Pain - DERM Skin Color: Normal Skin Problems: None Past Medical History - General Information source: Patient - Social History Smoking Status: Never Smoker Frequency of alcohol use: None Drug Abuse: None Occupation: None Lives with: Family Family History: DM - Past Medical History Cardiac Medical History: Reports: Hx Hypercholesterolemia, Hx Hypertension - meds since 1998, Other - Tachycardia, patient wearing implanted monitor Denies: Hx Coronary Artery Disease, Hx Heart Attack Pulmonary Medical History: Reports: Hx Pneumonia - no hospitalization Denies: Hx Asthma, Hx Bronchitis, Hx COPD Neurological Medical History: Denies: Hx Cerebrovascular Accident, Hx Seizures Endocrine Medical History: Reports: Hx Diabetes Mellitus Type 2 Renal/ Medical History: Denies: Hx Peritoneal Dialysis Musculoskeltal Medical History: Reports Hx Arthritis - knees and wrists, Reports Hx Musculoskeletal Trauma Psychiatric Medical History: Reports: Hx Depression Past Surgical History: Reports: Hx Section, Hx Hysterectomy, Hx Orthopedic Surgery. Denies: Hx Pacemaker - Immunizations Immunizations up to date: Yes Hx Diphtheria, Pertussis, Tetanus Vaccination: Yes - 2007 Vertical Provider Document - CONSTITUTIONAL Agree With Documented VS: Yes Exam Limitations: No Limitations General Appearance: WD/WN, No Apparent Distress - INFECTION CONTROL TRAVEL OUTSIDE OF THE [place] IN LAST 30 DAYS: No - HEENT HEENT: Atraumatic, Normocephalic - NECK Neck: Supple, Other - Posterior cervical tenderness throughout entire cervical spine, no step-off or deformity - RESPIRATORY Respiratory: Breath Sounds Normal, No Respiratory Distress - CARDIOVASCULAR Cardiovascular: Regular Rate, Regular Rhythm Pulses: Normal: Radial, Dorsalis pedis - BACK Back: Abnormal Inspection - Upper thoracic midline tenderness T1 through 4 area , no step-off or deformity. negative: CVA Tenderness-Right, CVA Tenderness-Left - MUSCULOSKELETAL/EXTREMETIES Musculoskeletal/Extremeties: MAEW, Tender - Right ankle tenderness over lateral malleolar area with 1+ edema. Right knee tenderness to medial and lateral compartments, no joint effusion, no laxity with varus or valgus maneuvers., Edema - Right lateral ankle Notes: Generalized right shoulder joint tenderness, no deformity, no dislocation. Normal range of motion. - NEURO Level of Consciousness: Awake, Alert, Appropriate Motor/Sensory: No Motor Deficit - DERM Integumentary: Warm, Dry, No Rash Course - Re-evaluation Re-evalutation: 02/14/18 00:18 CT of the head was performed due to patient complaint of severe headache. Patient with incidental CT finding of occluded left maxillary sinus. Patient does report frequent sinus problems due to using a CPAP machine. Patient does complain of some dizziness today. Will cover with azithromycin as patient has a penicillin allergy. Patient with chronic appearing avulsion injury to the right ankle. Patient does state she has injured this ankle in the past. No obvious acute fracture. Offered patient crutches, patient declines given her shoulder injury. The patient presents with headache without signs of ETHNOGRAPHIC MATERIALS CONSERVATOR bleed , stroke, infection, or other serious etiology. The patient is neurologically intact. Given the extremely low risk of these diagnoses further testing and evaluation for these possibilities does not appear to be indicated at this time. The patient has been instructed to return if the symptoms worsen or change in any way. 0 - Vital Signs Vital signs: Temp Pulse Resp BP Pulse Ox 98.9 F 118 H 20 123/86 H 96 02/13/18 20:37 02/13/18 20:37 02/13/18 20:37 02/13/18 20:37 02/13/18 20:37 - Diagnostic Test Radiology reviewed: Pending, Image reviewed Procedures - Immobilization Right Ankle Pre-Proc Neuro Vasc Exam: Normal Immobilizer type: Ankle stirrup Performed by: RN Post-Proc Neuro Vasc Exam: Normal Right Knee Pre-Proc Neuro Vasc Exam: Normal Immobilizer type: Richard wrap Performed by: RN Post-Proc Neuro Vasc Exam: Normal Right Shoulder Immobilizer type: Sling Performed by: RN Post-Proc Neuro Vasc Exam: Normal Discharge - Discharge Clinical Impression: Fall Qualifiers: Encounter type: initial encounter Qualified Code(s): W19.XXXA - Unspecified fall, initial encounter Knee sprain Qualifiers: Encounter type: initial encounter Involved ligament of knee: unspecified ligament Laterality: right Qualified Code(s): S83.91XA - Sprain of unspecified site of right knee, initial encounter Right ankle sprain Qualifiers: Encounter type: initial encounter Involved ligament of ankle: unspecified ligament Qualified Code(s): S93.401A - Sprain of unspecified ligament of right ankle, initial encounter Right shoulder pain Qualifiers: Chronicity: unspecified Qualified Code(s): M25.511 - Pain in right shoulder Cervical strain, acute Qualifiers: Encounter type: initial encounter Qualified Code(s): S16.1XXA - Strain of muscle, fascia and tendon at neck level, initial encounter Head injury Qualifiers: Encounter type: initial encounter Qualified Code(s): S09.90XA - Unspecified injury of head, initial encounter Sinusitis Qualifiers: Sinusitis location: maxillary Chronicity: unspecified Qualified Code(s): J32.0 - Chronic maxillary sinusitis Condition: Stable Disposition: HOME, SELF-CARE Instructions: Azithromycin ([facility]), Head Injury Precautions ([facility]), Ice & Elevation ([facility]), Neck Injury (Cervical Strain) ([facility]), Sinusitis ([facility]), Splint Precautions ([facility]), Sprained Ankle ([facility]), Sprained Knee ([facility]) Additional Instructions: Return immediately for any new or worsening symptoms Followup with your primary care provider, call tomorrow to make a followup appointment Follow-up with your geospatial specialist for further evaluation, call Thursday for an appointment Take your pain medication that you have at home as prescribed Prescriptions: Azithromycin [Zithromax 250 mg Tablet] 250 mg PO DAILY 4 Days tablet Referrals: NILESH NARANJO MD [Primary Care Provider] - 02/15/18 EZIO JOHN MD [NO LOCAL MD] - Follow up as needed
--- NOTE | 2018-02-13 23:02 | RADIOLOGY REPORT (SQ) ---
EXAM DESCRIPTION: CT HEAD WITHOUT CLINICAL HISTORY: 47 years Female, fall COMPARISON: None. TECHNIQUE: No contrast. Coronal and sagittal reformat. This exam was performed according to our departmental dose-optimization program, which includes automated exposure control, adjustment of the mA and/or kV according to patient size and/or use of iterative reconstruction technique. FINDINGS: No hemorrhage or infarct. No mass, mass effect, or midline shift. Occluded left maxillary sinus. Brain and extra-axial structures appear otherwise intact. IMPRESSION: No acute findings.
--- NOTE | 2018-02-13 23:05 | RADIOLOGY REPORT (SQ) ---
EXAM DESCRIPTION: CT CERVICAL SPINE WITHOUT CLINICAL HISTORY: 47 years Female, fall COMPARISON: None. TECHNIQUE: No contrast. Coronal and sagittal reformat. This exam was performed according to our departmental dose-optimization program, which includes automated exposure control, adjustment of the mA and/or kV according to patient size and/or use of iterative reconstruction technique. FINDINGS: No fracture or subluxation. Normal vertebral heights. Minimal reversed lordotic curvature. Mild C5-C6 vacuum disc desiccation. Unenhanced nuchal soft tissues, inferior cranium, and upper thorax appear otherwise grossly intact. Impression: No acute findings.
--- NOTE | 2018-02-14 00:17 | RADIOLOGY REPORT (SQ) ---
EXAM DESCRIPTION: ANKLE RIGHT COMPLETE CLINICAL HISTORY: 47 years, Female, fall COMPARISON: None. NUMBER OF VIEWS: 3 LIMITATIONS: None. FINDINGS: 0.5 cm ossicular avulsive fragment on the lateral malleolus. No swelling. IMPRESSION: Small chronic avulsive fragment of the right lateral malleolus.
[2018-02-14] MEDS ORDERED: AZITHROMYCIN 250 MG TABLET PO ONE (00:18)
--- NOTE | 2018-02-14 00:18 | RADIOLOGY REPORT (SQ) ---
EXAM DESCRIPTION: KNEE RIGHT 4 VIEWS CLINICAL HISTORY: 47 years Female, fall COMPARISON: None. Findings: Bones, joints, and soft tissues of the KNEE RIGHT 4 VIEWS appear intact. IMPRESSION: No acute findings.
--- NOTE | 2018-02-14 00:20 | RADIOLOGY REPORT (SQ) ---
EXAM DESCRIPTION: SHOULDER RIGHT 2 OR MORE VIEWS CLINICAL HISTORY: 47 years Female, fall COMPARISON: None. Findings: Minimal acromioclavicular osteoarthritis. Bones, joints, and soft tissues of the SHOULDER RIGHT 2 OR MORE VIEWS appear otherwise intact. IMPRESSION: No acute findings.
--- NOTE | 2018-02-14 00:21 | RADIOLOGY REPORT (SQ) ---
EXAM DESCRIPTION: T SPINE AP/LAT CLINICAL HISTORY: 47 years, Female, fall COMPARISON: None. NUMBER OF VIEWS: 2 Findings: Normal alignment and curvature. Vertebral and intervertebral heights are maintained. Extraspinal structures are grossly intact. IMPRESSION: No acute findings of T SPINE AP/LAT .
[2018-02-14 02:07] VITALS: BP 128/73
== END 2018-02-14 00:39 | disposition home or self-care (01) ==
LOC: ER 20:26
DX: S83.91XA Sprain of unspecified site of right knee, initial encounter (principal); S93.401A Sprain of unspecified ligament of right ankle, initial encounter; S16.1XXA Strain of muscle, fascia and tendon at neck level, initial encounter; S09.90XA Unspecified injury of head, initial encounter; R51 Headache; M25.511 Pain in right shoulder; M54.2 Cervicalgia; M54.89 Other dorsalgia; W10.1XXA Fall (on)(from) sidewalk curb, initial encounter; J32.0 Chronic maxillary sinusitis; R11.0 Nausea; R42 Dizziness and giddiness; E11.9 Type 2 diabetes mellitus without complications; I10 Essential (primary) hypertension; Z98.890 Other specified postprocedural states
CPT/HCPCS: 99284; 73610; 73564; 73030; 72070; 70450; 72125; L1902

== ENCOUNTER 2018-09-13 06:25 | Emergency (ER) | payer BC ==
[2018-09-13 06:33] VITALS: BP 125/85
[2018-09-13] MEDS ORDERED: LIDOCAINE 1% INJ-PF (10 MG/ML) 30 ML SDV INJ ONE (06:50)
--- NOTE | 2018-09-13 06:55 | ER Document Report ---
ED General - General Chief Complaint: Vaginal Pain Stated Complaint: VAGINAL PAIN Time Seen by Provider: 09/13/18 06:42 TRAVEL OUTSIDE OF THE [place] IN LAST 30 DAYS: No - HPI Notes: Patient is a 48-year-old female that presents to the emergency department for chief complaint of perineal abscess. Patient noticed an abscess on her left labia 5 days ago. She states she had a similar abscess in 2011 after having a perineoplasty. She denies any drainage denies from the abscess. She states that it is sharp and painful when she sits on it. She denies any relieving factors. She denies any fevers, chills, vomiting, diarrhea and abdominal pain. She denies any vaginal discharge and dysuria. Past Medical History: Fibromyalgia, diabetes, chronic pain Past Surgical History: Perineoplasty, section Social History: Denies drugs alcohol and tobacco Family History: Reviewed and noncontributory for presenting illness Allergies: Reviewed, see documented allergy list. REVIEW OF SYSTEMS: CONSTITUTIONAL : No fever No chills No diaphoresis No recent illness EENT: No vision changes No congestion No sore throat CARDIOVASCULAR: No chest pain No palpitations RESPIRATORY: No shortness of breath No cough No difficulty breathing GASTROINTESTINAL: No abdominal pain No nausea No vomiting No diarrhea GENITOURINARY: No dysuria No hematuria No difficulty urinating MUSCULOSKELETAL: No back pain No leg pain No arm pain SKIN: No rashes Abscess LYMPHATIC: No swollen, enlarged glands. NEUROLOGICAL: No lightheadedness No headache No weakness No paresthesias PSYCHIATRIC: No anxiety No depression PHYSICAL EXAMINATION: Vital signs reviewed, nursing noted reviewed. GENERAL: Well-appearing, well-nourished and in no acute distress. HEAD: Atraumatic, normocephalic. EYES: Eyes appear normal, extraocular movements intact, sclera anicteric, conjunctiva are normal. ENT: nares patent, oropharynx clear without exudates. Moist mucous membranes. NECK: Normal range of motion, supple without lymphadenopathy LUNGS: Breath sounds clear to auscultation bilaterally and equal. No wheezes rales or rhonchi. HEART: Regular rate and rhythm without murmurs ABDOMEN: Soft, nontender, normoactive bowel sounds. No rebound, guarding, or rigidity. No masses appreciated. EXTREMITIES: Nontender, good range of motion, no pitting or edema. NEUROLOGICAL: No focal neurological deficits. Moves all extremities spontaneously Motor and sensory grossly intact on exam. PSYCH: Normal mood, normal affect. SKIN: Warm, Dry, normal turgor. 1.0 cm x 1.0 cm fluctuant abscess with no active drainage to left perineum between vaginal os and anus. - Related Data Allergies/Adverse Reactions: adhesive tape Allergy (Verified 09/13/18 06:56) cephalexin monohydrate [From Keflex] Allergy (Verified 09/13/18 06:56) ciprofloxacin Allergy (Verified 09/13/18 06:56) povidone-iodine [From Betadine] Allergy (Verified 09/13/18 06:56) Soap [From Betadine] Allergy (Verified 09/13/18 06:56) cillins Allergy (Uncoded 02/02/12 16:03) Past Medical History - Social History Smoking Status: Never Smoker Family History: Reviewed & Not Pertinent, DM - Past Medical History Cardiac Medical History: Reports: Hx Hypercholesterolemia, Hx Hypertension - meds since 1998 Denies: Hx Coronary Artery Disease, Hx Heart Attack Pulmonary Medical History: Reports: Hx Pneumonia - no hospitalization Denies: Hx Asthma, Hx Bronchitis, Hx COPD Neurological Medical History: Denies: Hx Cerebrovascular Accident, Hx Seizures Endocrine Medical History: Reports: Hx Diabetes Mellitus Type 2 Renal/ Medical History: Denies: Hx Peritoneal Dialysis Musculoskeletal Medical History: Reports Hx Arthritis - knees and wrists, Reports Hx Musculoskeletal Trauma Psychiatric Medical History: Reports: Hx Depression Past Surgical History: Reports: Hx Section, Hx Hysterectomy, Hx Orthopedic Surgery. Denies: Hx Pacemaker - Immunizations Immunizations up to date: Yes Hx Diphtheria, Pertussis, Tetanus Vaccination: Yes - 2007 Physical Exam - Vital signs Vitals: Temp Pulse Resp BP Pulse Ox 98.1 F 100 16 125/85 95 09/13/18 06:29 09/13/18 06:29 09/13/18 06:29 09/13/18 06:29 09/13/18 06:29 Course - Re-evaluation Re-evalutation: 09/13/18 06:53 Vitals reviewed. Nursing notes reviewed. Patient's abscess was incised and drained, see procedure note. Patient will be started on Bactrim for her infection. She was counseled on wound care. She will follow with primary care for reevaluation. She was also given referral to [facility] to establish care upon her request. - Vital Signs Vital signs: Temp Pulse Resp BP Pulse Ox 98.1 F 100 16 125/85 95 09/13/18 06:29 09/13/18 06:29 09/13/18 06:29 09/13/18 06:29 09/13/18 06:29 Procedures - Incision and Drainage Left Labia Time completed: 06:55 - 1.0 cm x 1.0 cm Type: Simple Anesthetic type: 1% Lidocaine mL's of anesthetic: 2 Blade size: 11 I&D procedure: Betadine prep applied Incision Method: Incision made by scalpel Notes: 09/13/18 07:41 Area cleaned with Betadine. Anesthetized with lidocaine with epinephrine. 11 blade scalpel used to make a 0.5 cm linear incision over the abscess. Copious amounts of purulence was expressed. Loculations were broken up using curvilinear clamp. Area left open and dressed with bulky dressing. Patient tolerated well with no complications. Discharge - Discharge Clinical Impression: Abscess Condition: Stable Disposition: HOME, SELF-CARE Instructions: Trimethoprim-Sulfa ([facility]) Additional Instructions: Please return to the emergency department if you have any worsening, or concern of your symptoms. Please return to the emergency department if you develop chest pain, difficulty breathing, severe abdominal pain, or ongoing vomiting. Please follow-up with your primary care physician in 2-3 days and any other recommended physicians. If prescribed, take all medications as directed. If you have any questions or concerns do not hesitate to return the emergency department for evaluation. [] Prescriptions: Sulfamethoxazole/Trimethoprim [Bactrim Ds Tablet] 1 each PO BID #14 tablet Referrals: [facility] [Provider Group] - Follow up as needed NILESH NARANJO MD [Primary Care Provider] - Follow up in 3-5 days
[2018-09-13] MEDS ORDERED: ACETAMINOPHEN 325 MG TABLET ONE (07:55)
== END 2018-09-13 07:24 | disposition home or self-care (01) ==
LOC: ER 06:25
DX: N76.4 Abscess of vulva (principal); L02.215 Cutaneous abscess of perineum; E11.9 Type 2 diabetes mellitus without complications; I10 Essential (primary) hypertension
CPT/HCPCS: 99283

== ENCOUNTER 2019-02-23 05:17 | Emergency (ER) | payer BC ==
[2019-02-23] MEDS ORDERED: NORMAL SALINE 1000 ML 1,000 ML IV ONE ×3 (06:58→09:53)
[2019-02-23 07:19] LABS: ABSOLUTE BASOPHILS # (AUTO) 0.1 10^3/uL (0.0-0.2); ABSOLUTE EOSINOPHILS # (AUTO) 0.1 10^3/uL (0.0-0.6); ABSOLUTE LYMPHOCYTES (AUTO) 2.8 10^3/uL (0.5-4.7); ABSOLUTE MONOCYTES (AUTO) 0.4 10^3/uL (0.1-1.4); ABSOLUTE NEUT (AUTO) 2.1 10^3/uL (1.7-8.2); BASOPHILS % (AUTO) 0.9 % (0-2); EOSINOPHILS % (AUTO) 1.9 % (0-6); HEMATOCRIT 34.8 % (36.0-47.0); HEMOGLOBIN 11.6 g/dL (12.0-15.5); LYMPHOCYTES % (AUTO) 51.4 % (13-45); MEAN CORPUSCULAR HEMOGLOBIN 28.2 pg (27.0-33.4); MEAN CORPUSCULAR HGB CONC 33.2 g/dL (32.0-36.0); MEAN CORPUSCULAR VOLUME 85 fl (80-97); MONOCYTES % (AUTO) 6.9 % (3-13); PLATELET COUNT 306 10^3/uL (150-450); RED CELL DISTRIBUTION WIDTH 12.4 % (11.5-14.0); SEGMENTED NEUTROPHILS % (AUTO) 38.9 % (42-78); TOTAL CELLS COUNTED % (AUTO) 100 %; WHITE BLOOD COUNT 5.4 10^3/uL (4.0-10.5)
[2019-02-23 07:47] LABS: ALANINE AMINOTRANSFERASE 15 U/L (9-52); ALBUMIN 4.4 g/dL (3.5-5.0); ALKALINE PHOSPHATASE 116 U/L (38-126); ANION GAP 17 (5-19); ASPARTATE AMINO TRANSFERASE 19 U/L (14-36); BILIRUBIN,DIRECT 0.4 mg/dL (0.0-0.4); BILIRUBIN,TOTAL 0.4 mg/dL (0.2-1.3); BLOOD UREA NITROGEN 29 mg/dL (7-20); CALCIUM 10.5 mg/dL (8.4-10.2); CARBON DIOXIDE 30 mmol/L (22-30); CHLORIDE 90 mmol/L (98-107); CREATINE KINASE 56 U/L (30-135); POTASSIUM 4.4 mmol/L (3.6-5.0); SODIUM 136.5 mmol/L (137-145)
[2019-02-23 08:01] LABS: GLUCOSE 402 mg/dL (75-110)
[2019-02-23] MEDS ORDERED: INSULIN REG, HUMAN 100 UNIT/ML 3 ML VIAL (PYX) IV ONE (08:08)
--- NOTE | 2019-02-23 10:51 | ER Document Report ---
Entered by NATALYA SEAMAN SCRIBE 02/23/19 0659 Acting as scribe for:ELSA BROWNE MD ED General - General Chief Complaint: High Blood Sugar Stated Complaint: HIGH BLOOD SUGAR Time Seen by Provider: 02/23/19 06:48 Primary Care Provider: NILESH NARANJO MD [Primary Care Provider] - Follow up as needed Mode of Arrival: Ambulatory Information source: Patient Notes: 48-year-old female with insulin-dependent diabetes that presents to the [facility] department today with complaints of "getting called at 0430 this morning telling her that "all of her labs were wacky and her BGL was 750". Patient states she had an outpatient blood draw at her doctor's, Dr. Naranjo x2 days ago and he called her with these results this morning. Patient states the only symptoms she has had is frequent urination and increased thirst. Patient states she "tries" to take her insulin/metformin every day. The patient rarely checks her own blood sugars. She does see Dr. Jaeger for endocrinology. Her last A1c about 2 months ago was greater than 12. TRAVEL OUTSIDE OF THE [place] IN LAST 30 DAYS: No - Related Data Allergies/Adverse Reactions: adhesive tape Allergy (Verified 09/13/18 06:56) cephalexin monohydrate [From Keflex] Allergy (Verified 09/13/18 06:56) ciprofloxacin Allergy (Verified 09/13/18 06:56) povidone-iodine [From Betadine] Allergy (Verified 09/13/18 06:56) Soap [From Betadine] Allergy (Verified 09/13/18 06:56) cillins Allergy (Uncoded 02/02/12 16:03) Past Medical History - General Information source: Patient - Social History Smoking Status: Unknown if Ever Smoked Frequency of alcohol use: None Drug Abuse: None Lives with: Family Family History: Reviewed & Not Pertinent, DM Patient has suicidal ideation: No Patient has homicidal ideation: No - Past Medical History Cardiac Medical History: Reports: Hx Hypercholesterolemia, Hx Hypertension - meds since 1998 Pulmonary Medical History: Reports: Hx Pneumonia - no hospitalization Endocrine Medical History: Reports: Hx Diabetes Mellitus Type 2 Musculoskeletal Medical History: Reports Hx Arthritis - knees and wrists, Reports Hx Musculoskeletal Trauma Psychiatric Medical History: Reports: Hx Depression Past Surgical History: Reports: Hx Section, Hx Hysterectomy, Hx Orthopedic Surgery - Immunizations Immunizations up to date: Yes Hx Diphtheria, Pertussis, Tetanus Vaccination: Yes - 2007 Review of Systems - Review of Systems Constitutional: See HPI, Other - increased thirst, increased urine output, high BGL EENT: No symptoms reported Cardiovascular: No symptoms reported Respiratory: No symptoms reported Gastrointestinal: No symptoms reported Genitourinary: No symptoms reported Female Genitourinary: No symptoms reported Musculoskeletal: No symptoms reported Skin: No symptoms reported Hematologic/Lymphatic: No symptoms reported Neurological/Psychological: No symptoms reported -: Yes All other systems reviewed and negative Physical Exam - Vital signs Vitals: Temp Pulse Resp BP Pulse Ox 98.2 F 95 17 119/83 98 02/23/19 05:30 02/23/19 05:30 02/23/19 05:30 02/23/19 05:30 02/23/19 05:30 - Notes Notes: Physical Exam: General: Alert, appears well. HEENT: Normocephalic. Atraumatic. PERRL. Extraocular movements intact. Orophary nx clear. Moist oral mucosa. Neck: Supple. Non-tender. Respiratory: No respiratory distress. Clear and equal breath sounds bilaterally. Cardiovascular: Regular rate and rhythm. Abdominal: Obese. Non-tender. No distension. Normal Bowel Sounds. Back: Non-tender. No deformity or step off. Extremities: Moves all four extremities. Upper extremities: Normal inspection. Normal ROM. Lower extremities: Normal inspection. No edema. Normal ROM. Neurological: Normal cognition. AAOx4. Normal speech. Psychological: Normal affect. Normal Mood. Skin: Warm. Dry. Normal color. Course - Re-evaluation Re-evalutation: 02/23/19 09:54 The patient's hemoglobin A1c is greater than 14.0 The patient does not check her sugars at home. She sounded quite vague about whether or not she really takes her diabetes medications. - Vital Signs Vital signs: Temp Pulse Resp BP Pulse Ox 98.2 F 95 17 119/83 98 02/23/19 05:30 02/23/19 05:30 02/23/19 05:30 02/23/19 05:30 02/23/19 05:30 - Laboratory Result Diagrams: 02/23/19 06:52 02/23/19 06:52 Laboratory results interpreted by me: 02/23/19 02/23/19 02/23/19 06:42 06:52 06:52 Hgb 11.6 L Hct 34.8 L Seg Neutrophils % 38.9 L Lymphocytes % 51.4 H Sodium 136.5 L Chloride 90 L BUN 29 H Est GFR (Non-Af Amer) 52 L Glucose 402 H* POC Glucose 354 H Hemoglobin A1c % Calcium 10.5 H Urine Glucose (UA) Urine Ketones Urine Ascorbic Acid 02/23/19 02/23/19 02/23/19 06:52 10:43 10:47 Hgb Hct Seg Neutrophils % Lymphocytes % Sodium Chloride BUN Est GFR (Non-Af Amer) Glucose POC Glucose 277 H Hemoglobin A1c % > 14.0 H Calcium Urine Glucose (UA) >=500 H Urine Ketones TRACE H Urine Ascorbic Acid 20 H Discharge - Discharge Clinical Impression: Poorly controlled diabetes mellitus Hyperglycemia due to type 2 diabetes mellitus Qualifiers: 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 Take all of your medications as they are prescribed. Check your blood sugars at least twice daily. Call your market master today to report your lab results. Follow-up with your doctor in the next few days for recheck. RETURN TO THE EMERGENCY ROOM IF ANY NEW OR WORSENING SYMPTOMS. Referrals: NILESH NARANJO MD [Primary Care Provider] - Follow up as needed Scribe Attestation: 02/23/19 07:23 I personally performed the services described in the documentation, reviewed and edited the documentation which was dictated to the scribe in my presence, and it accurately records my words and actions. 02/23/19 0723 I personally performed the services described in the documentation, reviewed and edited the documentation which was dictated to the scribe in my presence, and it accurately records my words and actions.
[2019-02-23 11:04] LABS: APPEARANCE,URINE CLEAR; BILIRUBIN,URINE NEGATIVE (NEGATIVE); COLOR,URINE YELLOW; GLUCOSE, URINE >=500 mg/dL (NEGATIVE); KETONES,URINE TRACE mg/dL (NEGATIVE); LEUKOCYTE ESTERASE,URINE NEGATIVE (NEGATIVE); NITRITE,URINE NEGATIVE (NEGATIVE); PROTEIN,URINE NEGATIVE (NEGATIVE); URINE SPECIFIC GRAVITY 1.024; UROBILINOGEN,URINE NEGATIVE mg/dL (<2.0)
[2019-02-23 11:51] VITALS: BP 123/91
== END 2019-02-23 12:23 | disposition home or self-care (01) ==
LOC: ER 05:17
DX: E11.65 Type 2 diabetes mellitus with hyperglycemia (principal); I10 Essential (primary) hypertension; Z91.048 Other nonmedicinal substance allergy status; Z88.1 Allergy status to other antibiotic agents; Z88.3 Allergy status to other anti-infective agents; Z88.0 Allergy status to penicillin
CPT/HCPCS: 99283; 96360; 96361; 36415; 82962; 82550; 85025; 80053; 81001; 83036; J1815; J7030

== ENCOUNTER 2019-05-07 03:10 | Emergency (ER) | payer BC ==
[2019-05-07 05:18] LABS: HEMATOCRIT 36.7 % (36.0-47.0); MEAN CORPUSCULAR HEMOGLOBIN 28.1 pg (27.0-33.4); MEAN CORPUSCULAR HGB CONC 32.8 g/dL (32.0-36.0); MEAN CORPUSCULAR VOLUME 86 fl (80-97); PLATELET COUNT 374 10^3/uL (150-450); RED BLOOD COUNT 4.28 10^6/uL (3.72-5.28); RED CELL DISTRIBUTION WIDTH 12.9 % (11.5-14.0)
--- NOTE | 2019-05-07 05:43 | ER Document Report ---
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 She states that she scratched it because it had itched and then it started bleeding. She descri bed the bleeding as a shooting bleed. She was able to control the bleeding at home, but when she went to sleep she woke up and noticed more bleeding. She has not had this happen before. She had no complications post surgery. Patient states that she feels lightheaded. Denies passing out, or any other symptoms. TRAVEL OUTSIDE OF THE [place] IN LAST 30 DAYS: No - Related Data Allergies/Adverse Reactions: adhesive tape Allergy (Verified 05/07/19 03:16) cephalexin monohydrate [From Keflex] Allergy (Verified 05/07/19 03:16) ciprofloxacin Allergy (Verified 05/07/19 03:16) exenatide [From Byetta] Allergy (Verified 05/07/19 03:17) povidone-iodine [From Betadine] Allergy (Verified 05/07/19 03:16) Soap [From Betadine] Allergy (Verified 05/07/19 03:16) Sulfa (Sulfonamide Antibiotics) Allergy (Verified 05/07/19 03:17) cillins Allergy (Uncoded 02/02/12 16:03) Past Medical History - Social History Smoking Status: Never Smoker Chew tobacco use (# tins/day): No Frequency of alcohol use: Occasional Drug Abuse: None Family History: Reviewed & Not Pertinent, DM Patient has suicidal ideation: No Patient has homicidal ideation: No - Past Medical History Cardiac Medical History: Reports: Hx Hypercholesterolemia, Hx Hypertension - meds since 1998 Denies: Hx Coronary Artery Disease, Hx Heart Attack Pulmonary Medical History: Reports: Hx Pneumonia - no hospitalization Denies: Hx Asthma, Hx Bronchitis, Hx COPD Neurological Medical History: Denies: Hx Cerebrovascular Accident, Hx Seizures Endocrine Medical History: Reports: Hx Diabetes Mellitus Type 2 Renal/ Medical History: Denies: Hx Peritoneal Dialysis Musculoskeletal Medical History: Reports Hx Arthritis - knees and wrists, Reports Hx Musculoskeletal Trauma Psychiatric Medical History: Reports: Hx Depression Past Surgical History: Reports: Hx Section, Hx Hysterectomy, Hx Orthopedic Surgery. Denies: Hx Pacemaker - Immunizations Immunizations up to date: Yes Hx Diphtheria, Pertussis, Tetanus Vaccination: Yes - 2007 Review of Systems - Review of Systems Notes: REVIEW OF SYSTEMS: CONSTITUTIONAL : Denies recent illness. Denies recent unintentional weight loss. Denies fever, chills, or sweats. EENT: Denies eye, ear, throat, or mouth pain, discharge, or symptoms. Denies nasal or sinus congestion. CARDIOVASCULAR: Denies chest pain. RESPIRATORY: Denies shortness of breath, cough, congestion, difficulty breathing, or wheezing. GASTROINTESTINAL: Denies nausea, vomiting, and diarrhea. Denies abdominal pain. Denies constipation. GENITOURINARY: Denies difficulty urinating, burning, blood in urine, urgency or frequency. MUSCULOSKELETAL: Denies neck and back pain. Denies joint pain or swelling. SKIN: See HPI HEMATOLOGIC : See HPI LYMPHATIC: Denies swollen, painful, enlarged glands. NEUROLOGICAL: Denies no numbness or tingling denies weakness. Denies headache. Denies altered mental status. Denies alteration in speech. PSYCHIATRIC: Denies stress, anxiety, alteration in sleep patterns, or depression. All other systems reviewed and negative. Physical Exam - Vital signs Vitals: Temp Pulse Resp BP Pulse Ox 97.6 F 106 H 16 117/88 H 97 05/07/19 03:20 05/07/19 03:20 05/07/19 03:20 05/07/19 03:20 05/07/19 03:20 - Notes Notes: PHYSICAL EXAMINATION: GENERAL: Appears well, healthy, well-nourished, no acute distress. HEAD: Normocephalic, atraumatic. EYES: PERRL, conjunctiva normal, all extraocular movements intact, sclera nonicteric ENT: Moist mucous membranes. NECK: Supple, no noticeable swelling, redness, rash. Normal range of motion. LUNGS: Equal breath sounds bilaterally and clear to auscultation. No wheezes rales or rhonchi. CARDIOVASCULAR: S1-S2, regular rate, regular rhythm. Radial pulses 2+, normal. ABDOMEN: Normoactive bowel sounds. Soft, nontender, no guarding, no rebound tenderness, and no masses palpated. EXTREMITIES: Normal strength and range of motion, no pitting or edema. No cyanosis. NEUROLOGICAL: Moves all extremities upon command. Strength 5/5 in all extremities. PSYCH: Normal mood, normal affect. SKIN: Warm, dry. Normal skin turgor. Small open area noted to bridge of patient's nose. Course - Re-evaluation Re-evalutation: 05/07/19 05:00 Silver nitrate was placed to the area. There was a small amount of bleeding, but was well controlled with the silver nitrate. 05/07/19 05:53 Patient's hematology is unremarkable. She is actually not anemic. The area that silver nitrate was placed on as remained in place. I advised the patient not to pick at the area that was cauterized. She will follow-up with her primary care provider. She is in agreement with this plan. Follow-up precautions were given. Verbal discharge instructions were given to the patient. They verbalized understanding. They are stable for discharge. - Vital Signs Vital signs: Temp Pulse Resp BP Pulse Ox 97.6 F 106 H 16 117/88 H 97 05/07/19 03:20 05/07/19 03:20 05/07/19 03:20 05/07/19 03:20 05/07/19 03:20 - Laboratory Result Diagrams: 05/07/19 04:57 Discharge - Discharge Clinical Impression: Bleeding Condition: Stable Disposition: HOME, SELF-CARE Additional Instructions: You were seen today in the emergency department for your old hemangioma site bleeding. It was controlled here in the emergency department. You may follow- up with your primary care provider as needed. Please let the scab fall off on its own. Do not pick at the site. Referrals: NILESH NARANJO MD [Primary Care Provider] - Follow up as needed
[2019-05-07 06:04] VITALS: BP 109/74
== END 2019-05-07 06:05 | disposition home or self-care (01) ==
LOC: ER 03:10
DX: D18.01 Hemangioma of skin and subcutaneous tissue (principal); R42 Dizziness and giddiness; E78.00 Pure hypercholesterolemia, unspecified; I10 Essential (primary) hypertension; E11.9 Type 2 diabetes mellitus without complications; Z88.3 Allergy status to other anti-infective agents; Z90.710 Acquired absence of both cervix and uterus; Z88.2 Allergy status to sulfonamides; Z88.0 Allergy status to penicillin
CPT/HCPCS: 36415; 85027; 99283